=== PATIENT | female | born 1995 | race Caucasian/White ===

== ENCOUNTER 2020-08-22 19:18 | Emergency (ER) | payer MEDICAID ==
[~2020-08-22] VITALS: Ht 162.6 cm; Wt 62.6 kg
[2020-08-22 20:28] LABS: BASOPHILS % (AUTO) 0 % (0-1); EOSINOPHILS % (AUTO) 2 % (1-7); LYMPHOCYTES % (AUTO) 18 % (22-44); MEAN CORPUSCULAR HEMOGLOBIN 24.3 pg (27.0-34.8); MEAN CORPUSCULAR HGB CONC 32.1 g/dL (32.4-35.8); MONOCYTES % (AUTO) 6 % (2-9); NEUTROPHILS % (AUTO) 73 % (42-75); PLATELET COUNT 263 x10^3/uL (130-400); RED BLOOD COUNT 3.86 x10^6/uL (3.82-5.3); RED CELL DISTRIBUTION WIDTH 15.8 % (9.6-15.2)
[2020-08-22 20:40] LABS: ALBUMIN 2.4 g/dL (3.4-5.0); ANION GAP 6 mmol/L (5-15); CALCIUM 8.2 mg/dL (8.5-10.1); CHLORIDE 110 mmol/L (98-107); CREATININE 0.36 mg/dL (0.55-1.02)
--- NOTE | 2020-08-22 21:39 | NUR ---
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
--- NOTE | 2020-08-22 21:51 | NUR ---
CALLED L&D FOR HEART TONES.
--- NOTE | 2020-08-22 21:54 | NUR ---
PT. CHANGED INTO GOWN.
--- NOTE | 2020-08-22 22:50 | NUR ---
L&D WAS DOWN FOR FHT: 120'S-125. REQUESTED URINE SAMPLE FROM PT. PT. STATES SHE HAD VOIDED ALREADY BUT IS DRINKING ICED TEA AND CAN PROVIDE SAMPLE IN 15 MINUTES. ALL MONITORS HAVE BEEN IN PLACE.
[2020-08-22 23:00] LABS: ALANINE AMINOTRANSFERASE 16 U/L (12-78)
[2020-08-22 23:02] LABS: ALKALINE PHOSPHATASE 148 U/L (45-117); BILIRUBIN,TOTAL 0.3 mg/dL (0.2-1.0); TOTAL PROTEIN 6.6 g/dL (6.4-8.2)
[2020-08-22 23:11] LABS: BILIRUBIN, DIRECT < 0.1 mg/dL (0.1-0.2)
--- NOTE | 2020-08-22 23:19 | NUR ---
PT. AMBULATORY TO BR TO PROVIDE CLEAN CATCH UA. SENT TO LAB.
--- NOTE | 2020-08-23 00:45 | NUR ---
LIENTTE FULLER BACK IN TO DISCUSS D/C PLAN WITH PT.
[2020-08-23 01:01] VITALS: BP 114/71
== END 2020-08-23 01:03 | disposition home or self-care (01) ==
LOC: ED 23:52
DX: O26.893 Other specified pregnancy related conditions, third trimester (principal); F11.10 Opioid abuse, uncomplicated; O99.333 Smoking (tobacco) complicating pregnancy, third trimester; F17.210 Nicotine dependence, cigarettes, uncomplicated; Z3A.30 30 weeks gestation of pregnancy
CPT/HCPCS: 36415; 76815; 80048; 80076; 82040; 82570; 84156; 85025; 99284; 99406